=== PATIENT | male | born 1995 | race African-American/Black ===

== ENCOUNTER 2023-11-26 19:28 | Emergency (ER) | payer OTHER, SELFPAY ==
[~2023-11-26] VITALS: Ht 182.9 cm; Wt 166.6 kg
[2023-11-26] MEDS: LIDOCAINE 1% HCL (LOCAL ANESTH.) INJ 20ML MDV ID ONE (21:30)
[2023-11-26] MEDS ORDERED: MUPI2OIN2 EX (22:38)
[2023-11-26] MEDS ORDERED: CEPH500C PO (22:38)
[2023-11-26] MEDS ORDERED: IBUP1TAB5 PO (22:38)
[2023-11-26] MEDS: IBUPROFEN 600 MG TAB PO ONE (22:56)
[2023-11-26] MEDS: TETANUS-DIPTH-ACEL PERTUSSIS 0.5ML SYR Tdap IM ONE (22:59)
[2023-11-26 23:17] VITALS: BP 119/67; PULSE 78; RESP 22; TEMP 98.7; O2SAT 98
== END 2023-11-26 23:17 | disposition home or self-care (01) ==
LOC: ER 19:28
DX: S71.112A Laceration without foreign body, left thigh, initial encounter (principal); W26.0XXA Contact with knife, initial encounter; Y93.89 Activity, other specified; Y92.89 Other specified places as the place of occurrence of the external cause; Y99.8 Other external cause status
CPT/HCPCS: 12002; 90471; 90715; 99283; J2001